=== PATIENT | male | born 1980 | race Caucasian/White ===

== ENCOUNTER 2017-01-27 10:16 | Emergency (ER) | payer MEDICAID ==
--- NOTE | 2017-02-02 09:20 | ER ---
ADMIT: 01/27/2017 RM/LOC: ER [facility] MR#: [id number] [address] [id number], [place] [address] Emergency Room Report SEX: M AGE: 36 : 1980 DATE: 01/27/2017 ADDENDUM: See T-sheet for complete H and P. The patient is a 36-year-old male who comes in with abdominal pain. He states this started approximately 45 minutes to an hour prior to arrival here. It was quite severe. 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 By the time he got here, his pain was still presents but was quite a bit better. He describes the pain as being sharp, constant, left upper quadrant epigastrium. He has been having normal bowel movements. No diarrhea. He does have some nausea on the way over here but that resolved. Nothing made the pain better or worse. He has had no fevers or chills. He actually had symptoms similar to this approximately 36 hours ago who presented to a hospital in [place] as he is an asmj-ayd-fmtt supervisor ordnance truck installation and they did a workup there. His CT at that time showed nothing acute. He had some labs done including CMP and CBC. The only finding on a CBC showed a slightly elevated white count of 12.5 at that time. PHYSICAL EXAMINATION: On physical exam here, his belly is soft. He has active bowel sounds. He does have some mild tenderness in his epigastrium, but no tenderness anywhere else. No rebound tenderness. No guarding. I did do a flat plate of his abdomen, which showed no acute findings, and I did some labs also. His CBC here showed a white count of 12.5 and his CMP was also unremarkable. HOSPITAL COURSE: The patient was given Toradol and his symptoms were completely resolved in the ER. He is also given a GI cocktail, and at this time, we will discharge the patient to home to use his acid reflux medications as they are prescribed. Return for any worsening symptoms. Otherwise, follow up with his regular physician. Gene Garcia MD/ cresencio JOB #: [id number] CC: Gene Garcia MD, Attending Physician UNKNOWN, Family Physician
== END 2017-01-27 11:50 | disposition home or self-care (01) ==
LOC: ER 10:16
DX: R10.13 Epigastric pain (principal); I10 Essential (primary) hypertension; F32.9 Major depressive disorder, single episode, unspecified; F17.220 Nicotine dependence, chewing tobacco, uncomplicated; Z88.8 Allergy status to other drugs, medicaments and biological substances